=== PATIENT | male | born 1950 | race Caucasian/White ===

== ENCOUNTER 2016-12-03 14:22 | Inpatient (IN) ==
--- NOTE | 2016-12-03 14:46 | Emergency Department Note ---
Disposition Clinical Impression: New onset a-fib, Atrial fibrillation with RVR, Elevated troponin Disposition: Home, Self-Care Condition: Fair Time of Disposition: 15:37 Chest Pain HPI - General Chief Complaint: ED Chest Pain Stated Complaint: Chest Pain Time Seen by Provider: 12/03/16 14:23 Source: patient, EMS Mode of arrival: EMS Limitations: no limitations Vital Signs Reviewed: Yes Nursing Notes Reviewed: Yes - History of Present Illness HPI Narrative: Patient is a 66-year-old male with past medical history of hypertension, diabetes, high cholesterol, previous [facility] with stent placement. He cannot remember his last stress test or heart catheter. However, he has not had any testing within the past several years. He presents today as a transfer from the [facility]. He began having chest pain this morning around 4 AM. He felt like his heart was racing, felt short of breath, had left-sided chest pain that was a pressure that radiated to his left upper extremity. He also has some mild nausea. Denies any vomiting, abdominal pain, fevers, diarrhea, productive cough. He presented to the [facility] urgent care. He was found to have new onset a fib RVR. They gave him aspirin 325mg and nitroglycerin 1. He states that this did not really help with his chest discomfort and this caused him to get a headache. Currently, patient feels that his heart is racing and is short of breath but has no active chest pain while at rest. Otherwise in no acute distress. He denies ever having A. fib, has never been on any blood thinners besides presumably Plavix for stent placement. Severity scale (1-10): 6 - Related Data Allergies Allergy/AdvReac Type Severity Reaction Status Date / Time No Known Allergies Allergy Verified 12/03/16 14:51 All systems ED: reviewed and negative except as stated. Constitutional: Denies: fever Cardiovascular: Reports: chest pain, palpitations, dyspnea on exertion Respiratory: Denies: cough, dyspnea, wheezes Gastrointestinal: Reports: abdominal pain Chest Pain PMH - Past Medical History Medical history: Reports: cancer, coronary artery disease, diabetes, hypertension, thyroid disease Psychiatric history: Reports: no psych history - Social History Smoking Status: Former smoker Alcohol use: Reports: none Drug use: Reports: none Physical Exam - General Limitations: no limitations General appearance: alert - Head Head exam: atraumatic, normocephalic, normal inspection - Eye Eye exam: Present: normal appearance, PERRL, EOMI - ENT ENT exam: normal exam, normal oropharynx, mucous membranes moist - Neck Neck exam: Present: normal inspection, full ROM, trachea midline - Chest Chest inspection: Present: normal inspection, symmetric chest wall rise - Respiratory Respiratory exam: Present: normal lung sounds bilaterally - Cardiovascular Cardiovascular exam: Present: tachycardia, irregular rhythm, normal heart sounds - Abdominal Exam Abdominal exam: Present: soft, Non-Tender. Absent: tenderness, distention, guarding, rebound, rigidity - Extremities Exam Extremities exam: Present: normal inspection, full ROM. Absent: tenderness, pedal edema - Neurological Exam Neurological exam: Present: alert, oriented X3 - Psychiatric Psychiatric exam: Present: normal affect, normal mood - Skin Skin exam: Present: warm, dry, intact, normal color Course Course Narrative: Blood pressure stable and 150s over 90. Heart rate was in the 150s. EKG shows A. fib with RVR but no acute ST elevation or depression. Patient has very been given aspirin 325 mg, nitroglycerin 1. We will give the patient Cardizem 20 mg bolus and then Cardizem 10. Also perform basic blood work, troponin, chest x -ray and then admit for further care for new onset A. fib RVR. 15:34 CBC within normal limits. BMP not concerning. Troponin 0.15. CXR shows no acute cardio pulmonary process but there is a question of unusual location of patient's port in the chest. Clinically, no concern at this time. Patient started on heparin drip. Heart rate has improved. Patient will be admitted to medicine for further care. Patient has been accepted by Dr. Boogie Chest X-Ray 12/03/16 14:36 IMPRESSION: 1. No acute cardiopulmonary process identified. 2. Unusual location of the patient's of port component of a Port-A-Cath which is located more medially than typically seen. Physical exam correlation and clinical questioning is recommended to ensure there has not been migration of this port. The catheter terminates in the expected location of the distal SVC. D/ / Mike Kamara MD / Mike Kamara MD Interpreting Provider: Mike Kamara MD Vital Signs Temperature 97.9 F 12/03/16 14:34 Pulse Rate 91 12/03/16 14:34 Respiratory Rate 20 12/03/16 14:34 Blood Pressure 154/89 12/03/16 14:34 O2 Sat by Pulse Oximetry 98 12/03/16 14:34 Temperature 97.9 F 12/03/16 14:34 Pulse Rate 77 12/03/16 17:16 Respiratory Rate 18 12/03/16 17:16 Blood Pressure 145/65 12/03/16 17:16 O2 Sat by Pulse Oximetry 97 12/03/16 17:16 Oxygen Delivery Oxygen Delivery Nasal Cannula Chest Pain - MDM Narrative Medical decision making narrative: Blood pressure stable and 150s over 90. Heart rate was in the 150s. EKG shows A. fib with RVR but no acute ST elevation or depression. Patient has very been given aspirin 325 mg, nitroglycerin 1. We will give the patient Cardizem 20 mg bolus and then Cardizem 10. Also perform basic blood work, troponin, chest x -ray and then admit for further care for new onset A. fib RVR. 15:34 CBC within normal limits. BMP not concerning. Troponin 0.15. CXR shows no acute cardio pulmonary process but there is a question of unusual location of patient's port in the chest. Clinically, no concern at this time. Patient started on heparin drip. Heart rate has improved. Patient will be admitted to medicine for further care. Patient has been accepted by Dr. Boogie - Medical Records Medical records reviewed: Yes I reviewed the patient's medical records. - Lab Data Lab results reviewed: Yes I reviewed the patient's lab results. Result diagrams: 12/03/16 14:32 12/03/16 14:32 Lab Results 12/03/16 12/03/16 12/03/16 Range/Units 14:32 14:32 14:32 WBC 7.8 (4.3-11.1) K/mcL RBC 4.85 (4.19-5.50) M/mcL Hgb 15.6 (12.9-16.9) g/dL Hct 45.0 (37.5-50.1) % MCV 92.8 (83.0-100.0) fL MCH 32.2 (28.0-33.3) pg MCHC 34.7 (31.6-35.5) g/dL RDW 12.2 (11.5-14.5) % Plt Count 290 (140-400) K/mcL MPV 12.0 (9.4-12.4) fL Immature Gran % 0.3 (0-4) % Seg Neutrophils % 66.5 % Lymphocytes % 19.4 % Monocytes % 11.0 % Eosinophils % 1.8 % Basophils % 1.0 % Neutrophils # 5.2 (1.6-8.9) K/mcL Lymphocytes # 1.5 (0.6-4.6) K/mcL Monocytes # 0.9 (0.0-1.3) K/mcL Eosinophils # 0.1 (0.0-0.6) K/mcL Basophils # 0.1 (0.0-0.2) K/mcL PT 11.4 (9.4-12.1) Seconds INR 1.1 APTT 30.6 (26.0-36.0) Seconds D-Dimer 386 (0-500) ng/mLFEU Sodium 140 (136-145) mEq/L Potassium 4.0 (3.5-4.5) mEq/L Chloride 107 (98-109) mEq/L Carbon Dioxide 23 (19-29) mEq/L BUN 13 (8-26) mg/dL Creatinine 1.06 (0.72-1.25) mg/dL Est GFR ( Amer) > 60 (> 60) Est GFR (Non-Af Amer) > 60 (> 60) BUN/Creatinine Ratio 12 (6-26) Glucose 267 H (70-99) mg/dL Calculated Osmolality 299 (280-300) Calcium 9.8 (8.6-10.8) mg/dL Troponin I (0-0.03) ng/mL 12/03/16 Range/Units 14:32 WBC (4.3-11.1) K/mcL RBC (4.19-5.50) M/mcL Hgb (12.9-16.9) g/dL Hct (37.5-50.1) % MCV (83.0-100.0) fL MCH (28.0-33.3) pg MCHC (31.6-35.5) g/dL RDW (11.5-14.5) % Plt Count (140-400) K/mcL MPV (9.4-12.4) fL Immature Gran % (0-4) % Seg Neutrophils % % Lymphocytes % % Monocytes % % Eosinophils % % Basophils % % Neutrophils # (1.6-8.9) K/mcL Lymphocytes # (0.6-4.6) K/mcL Monocytes # (0.0-1.3) K/mcL Eosinophils # (0.0-0.6) K/mcL Basophils # (0.0-0.2) K/mcL PT (9.4-12.1) Seconds INR APTT (26.0-36.0) Seconds D-Dimer (0-500) ng/mLFEU Sodium (136-145) mEq/L Potassium (3.5-4.5) mEq/L Chloride (98-109) mEq/L Carbon Dioxide (19-29) mEq/L BUN (8-26) mg/dL Creatinine (0.72-1.25) mg/dL Est GFR ( Amer) (> 60) Est GFR (Non-Af Amer) (> 60) BUN/Creatinine Ratio (6-26) Glucose (70-99) mg/dL Calculated Osmolality (280-300) Calcium (8.6-10.8) mg/dL Troponin I 0.15 H* (0-0.03) ng/mL - Radiology Data Radiology results reviewed: Yes I reviewed the patient's radiology results. Chest X-Ray 12/03/16 14:36 IMPRESSION: 1. No acute cardiopulmonary process identified. 2. Unusual location of the patient's of port component of a Port-A-Cath which is located more medially than typically seen. Physical exam correlation and clinical questioning is recommended to ensure there has not been migration of this port. The catheter terminates in the expected location of the distal SVC. D/ / Mike Kamara MD / Mike Kamara MD Interpreting Provider: Mike Kamara MD - EKG Data EKG attestation: Yes I reviewed and interpreted this EKG. EKG results narrative: EKG #1 dec 03 2016 at 14:26. A. fib with RVR. Rate 144. QRS 29. QTc 352. Left axis deviation. No acute ST elevation or depression. EKG #2 12/03/2016 at 14:39. A. fib with RVR. Rate was 52. QRS 114. QTC 360. Left axis deviation. No acute ST elevation or depression. Rajinder - Rajinder Situation: Demographics, MOA Background: Presenting Complaint, Relevant PMH, Meds, & Allergies Assessment: Vital Signs, Course and respsone to treatment, Exam Concerns, Patient/Family Expectation, Pertinant Lab Results, Outstanding Labs Recommendation: Barrier(s) to disposition, Recommendation based on pending studies, treatments, or consults Rajinder Report Given to: Dr. Keagan Calvillo Repor Time: 15:37 Attestation Statement - Attestation Attestation: I, Sivakumar Regan, examined this patient and my medical decision-making was reviewed with the [employer]/PA/Advanced Practice Nurse/Resident Physician. I agree with the documented findings, disposition and treatment plan as described except to the extent set forth below. 66-year-old male presents with concerns of chest pain, shortness of breath and weakness over the past 4 days. Patient states his shortness of breath and weakness has been increasing as been increasing over the past 4 days however today at 4 AM he developed acute onset of sternal chest pain. Patient reports he felt mildly nauseated with the pain. He presented to the [facility] who gave him aspirin and sent him into the emergency department. On arrival the patient has atrial fibrillation with rapid ventricular rate. Never had atrial fibrillation in the past. Does not take anticoagulant medication. Patient has a history of coronary artery disease with 1 stent in the past. Patient given Cardizem 20 mg bolus with subsequent Cardizem drip with improvement of the patient's heart rate and pain. Patient given aspirin by the [facility]. Patient comfortable with plan for admission to hospital for continuation of care.
[2016-12-03 14:50] LABS: Basophils # 0.1 K/mcL (0.0-0.2); Eosinophils # 0.1 K/mcL (0.0-0.6); Eosinophils % 1.8 %; Hemoglobin 15.6 g/dL (12.9-16.9); Immature Granulocytes % 0.3 % (0-4); Lymphocytes # 1.5 K/mcL (0.6-4.6); Lymphocytes % 19.4 %; Mean Corpuscular HGB Conc 34.7 g/dL (31.6-35.5); Mean Corpuscular Hemoglobin 32.2 pg (28.0-33.3); Mean Corpuscular Volume 92.8 fL (83.0-100.0); Monocytes # 0.9 K/mcL (0.0-1.3); Neutrophils # 5.2 K/mcL (1.6-8.9); Platelet Count 290 K/mcL (140-400); Red Blood Count 4.85 M/mcL (4.19-5.50); Red Cell Distribution Width 12.2 % (11.5-14.5); Segmented Neutrophils % 66.5 %
[2016-12-03 14:55] LABS: BUN/Creatinine Ratio 12 (6-26); Blood Urea Nitrogen 13 mg/dL (8-26); Calcium 9.8 mg/dL (8.6-10.8); Carbon Dioxide 23 mEq/L (19-29); Chloride 107 mEq/L (98-109); Glucose 267 mg/dL (70-99); Osmolality,Calculated 299 (280-300); Sodium 140 mEq/L (136-145); eGFR For African Americans > 60 (> 60); eGFR For Non-African Americans > 60 (> 60)
[2016-12-03 15:03] LABS: INR 1.1; Prothrombin Time 11.4 Seconds (9.4-12.1)
[2016-12-03 15:05] LABS: Activated Partial Thrombo Time 30.6 Seconds (26.0-36.0)
[2016-12-03] MEDS ORDERED: *HR* Heparin 5,000 UNIT/ML VIAL IVP ONE (15:26)
[2016-12-03] MEDS ORDERED: *HR* Heparin 5,000 UNIT/ML VIAL IVP PRN ×2 (15:26)
[2016-12-03] MEDS ORDERED: Acetaminophen 325 MG TABLET PO PRN (16:19)
[2016-12-03] MEDS: Heparin 25,000 UNIT/500 ML D5W 25,000 UNIT/500 ML MLS IVC SCH (16:19)
[2016-12-03] MEDS ORDERED: Naloxone 0.4 MG/ML INJ IVP PRN (16:19)
[2016-12-03] MEDS ORDERED: *HR* Morphine 2 MG/ML SYRINGE IVP PRN (16:19)
--- NOTE | 2016-12-03 16:29 | Internal Med History&Physical ---
Date of Encounter: 12/03/16 Time of Encounter: 16:26 Assessment and Plan (1) Atrial fibrillation with RVR Current visit: Yes Status: Acute Patient presented with chest pain, palpitations and shortness of breath. Found to be in Afib with RVR, HR in the 150s. He was given a cardizem bolus and started on a cardizem drip with HR improving to the 90s. Continue cardizem drip. Consult to cardiology. (2) NSTEMI (non-ST elevated myocardial infarction) Current visit: Yes Status: Acute Patient with left chest pain starting at 4 am this morning. He has a history of [place] in 1988, other risk factors include HTN, DM, history of smoking, and obesity. EKG shows afib with RVR, but no ST elevations. Troponin 0.15. Continuous patient monitor heparin drip serial troponins consult to cardiology ordered. (3) Type 2 diabetes mellitus Current visit: Yes Status: Acute Check Hgb A1c check blood sugars ACHS sliding scale correction dose ACHS hypoglycemic protocol. Qualifiers: Diabetes mellitus complication status: with neurologic complications Diabetes mellitus complication detail: with polyneuropathy Diabetes mellitus prison insulin use: with prison use Qualified Code(s): E11.42 - Type 2 diabetes mellitus with diabetic polyneuropathy; Z79.4 - half-way (current) use of insulin (4) DVT prophylaxis Current visit: Yes Status: Acute anti-embolic stockings On heparin drip for NSTEMI, additional pharmacologic prophylaxis is not warranted. Internal Medicine - H&P: HPI Chief complaint: chest pain Admitted From: Emergency Dept Plans for Post Hospital Care: Home History of present illness: Mr. Holloway is a 66 year old male with hypertension, hyperlipidemia, type 2 diabetes, coronary artery disease status post stent placement, history of colon cancer status post partial colectomy, was sent to the emergency room today from the [place] [facility] with chest pain and atrial fibrillation with RVR. Patient reports that this morning he woke up and was having chest pain in his left chest left shoulder and left arm, he also experienced nausea, lightheadedness, palpitations and shortness of breath. Chest pain and shortness of breath were worse with exertion. Chest pain has been somewhat relieved by aspirin and nitroglycerin in the emergency department by patient reports is still present. He denies any headache, fever, chills, sweats, abdominal pain, diarrhea. Evaluation in the emergency department included an EKG which showed atrial fibrillation with RVR heart rate 150s, but no ST elevations or depressions. Troponin was elevated to 0.15. Chest x-ray showed no acute cardiopulmonary disease. On exam, patient is alert and oriented, in no acute distress. Heart has irregular tachycardic rhythm, lungs are clear bilaterally, abdomen is obese , nontender, he has trace bilateral lower extremity edema. Past Med Surg Social Fam HX - Past Medical History Medical history: cancer (colon cancer s/p partial colectomy and chemo, 4-5 years ago.), coronary artery disease, diabetes, hypertension, thyroid disease Psychiatric history: no psych history - Past Surgical History Surgical History: angioplasty/stent, colectomy - Social History Smoking Status: Former smoker (26 pack year history) Smokeless Tobacco Status: No Alcohol use: none Drug use: none - Family History Father Living Status: Age at : 82 Hx Family Cardiac Disorders: Yes Brother Living Status: Cause of : CVA Internal Medicine - H&P: Meds Aspirin Enteric Coated [Aspirin EC] 81 mg PO DAILY 12/03/16 [History] Atorvastatin Calcium [Lipitor] 20 mg PO HS 12/03/16 [History] Benzonatate [Tessalon] 100 mg PO TID PRN 12/03/16 [History] Carvedilol [Coreg] 6.25 mg PO BIDWM 12/03/16 [History] Cetirizine HCl [Zyrtec] 10 mg PO DAILY 12/03/16 [History] Cholecalciferol (D-3) [Vitamin D] 1,000 unit PO DAILY 12/03/16 [History] Fluticasone Propionate Nasal [Flonase] 100 mcg NS DAILY 12/03/16 [History] Insulin ASPART [Novolog Flexpen] 2 - 10 unit SQ TIDAC 12/03/16 [History] Insulin Glargine [Lantus] 43 unit SQ HS 12/03/16 [History] Levothyroxine [Synthroid] 175 mcg PO 0630 12/03/16 [History] Lisinopril [Zestril] 10 mg PO DAILY 12/03/16 [History] Metformin HCl [Metformin HCl ER] 1,000 mg PO BID 12/03/16 [History] Tamsulosin [Flomax] 0.4 mg PO BID 12/03/16 [History] Allergies No Known Allergies Allergy (Verified 12/03/16 14:51) All Systems PM: A 10-system review of systems was performed and is negative for pertinent findings except as documented above in the HPI. - Constitutional Constitutional: no chills, no fever(s), no night sweats - EENT Eyes: no change in vision, no discharge, no pain, no photophobia Ears: no ear discharge, no ear pain, no tinnitus Nose, mouth and throat: no dysphagia, no nasal discharge, no neck pain, no sore throat - Cardiovascular Cardiovascular ROS IM: chest pain, dyspnea, dyspnea on exertion, lightheadedness , palpitations, no diaphoresis, no syncope - Respiratory Respiratory: dyspnea, no cough, no wheezing, no excessive phlegm production - Gastrointestinal Gastrointestinal: nausea, no abdominal pain, no diarrhea, no hematemesis, no hematochezia, no melena, no vomiting - Musculoskeletal Musculoskeletal ROS IM: no numbness, no tingling - Integumentary Integumentary IM: no rash, no unusual bruising - Neurological Neurological ROS: no confusion, no convulsions, no focal weakness, no numbness, no tingling, no tremor(s) - Hematologic/Lymphatic Hematologic/Lymphatic: no easy bruising - Constitutional Vitals: Temp Pulse Resp BP Pulse Ox 97.9 F 126 22 134/71 97 12/03/16 14:34 12/03/16 15:38 12/03/16 15:45 12/03/16 15:45 12/03/16 15:38 General appearance: Present: A&O X 3, pleasant, no acute distress - Head Head exam: Present: atraumatic, normocephalic - Eye Eye exam: Present: PERRL, conjuntiva pink, sclera anicteric Pupils: Present: PERRL - Neck Neck exam general surgery: Present: supple, trachea midline. Absent: lymphadenopathy - Respiratory Respiratory exam: Present: CTAB. Absent: accessory muscle use, rales, rhonchi, wheezes - Cardiovascular Cardiovascular exam: Present: irregular rhythm, +S1, +S2, tachycardia. Absent: diastolic murmur, gallop, rubs, systolic murmur - GI/Abdominal GI/Abdominal exam: Present: normal bowel sounds, soft, no peritoneal signs. Absent: distended, tenderness - Extremities Exam Extremities exam: Present: pedal edema (trace BLE ), warm, radial pulses palpable and symetrical. Absent: calf tenderness, cyanotic - Neurological Exam Neurological exam: Present: CN II-XII intact, oriented X3, no focal deficits. Absent: facial droop, speech deficit - Skin Skin exam: Present: dry, intact Internal Med - H&P Results - Labs CBC & Chem 7: 12/03/16 14:32 12/03/16 14:32 Labs: All Lab Results (24 Hours) 12/03/16 12/03/16 12/03/16 Range/Units 14:32 14:32 14:32 WBC 7.8 (4.3-11.1) K/mcL RBC 4.85 (4.19-5.50) M/mcL Hgb 15.6 (12.9-16.9) g/dL Hct 45.0 (37.5-50.1) % MCV 92.8 (83.0-100.0) fL MCH 32.2 (28.0-33.3) pg MCHC 34.7 (31.6-35.5) g/dL RDW 12.2 (11.5-14.5) % Plt Count 290 (140-400) K/mcL MPV 12.0 (9.4-12.4) fL Immature Gran % 0.3 (0-4) % Seg Neutrophils % 66.5 % Lymphocytes % 19.4 % Monocytes % 11.0 % Eosinophils % 1.8 % Basophils % 1.0 % Neutrophils # 5.2 (1.6-8.9) K/mcL Lymphocytes # 1.5 (0.6-4.6) K/mcL Monocytes # 0.9 (0.0-1.3) K/mcL Eosinophils # 0.1 (0.0-0.6) K/mcL Basophils # 0.1 (0.0-0.2) K/mcL PT 11.4 (9.4-12.1) Seconds INR 1.1 APTT 30.6 (26.0-36.0) Seconds Sodium 140 (136-145) mEq/L Potassium 4.0 (3.5-4.5) mEq/L Chloride 107 (98-109) mEq/L Carbon Dioxide 23 (19-29) mEq/L BUN 13 (8-26) mg/dL Creatinine 1.06 (0.72-1.25) mg/dL Est GFR ( Amer) > 60 (> 60) Est GFR (Non-Af Amer) > 60 (> 60) BUN/Creatinine Ratio 12 (6-26) Glucose 267 H (70-99) mg/dL Calculated Osmolality 299 (280-300) Calcium 9.8 (8.6-10.8) mg/dL Troponin I (0-0.03) ng/mL 12/03/16 Range/Units 14:32 WBC (4.3-11.1) K/mcL RBC (4.19-5.50) M/mcL Hgb (12.9-16.9) g/dL Hct (37.5-50.1) % MCV (83.0-100.0) fL MCH (28.0-33.3) pg MCHC (31.6-35.5) g/dL RDW (11.5-14.5) % Plt Count (140-400) K/mcL MPV (9.4-12.4) fL Immature Gran % (0-4) % Seg Neutrophils % % Lymphocytes % % Monocytes % % Eosinophils % % Basophils % % Neutrophils # (1.6-8.9) K/mcL Lymphocytes # (0.6-4.6) K/mcL Monocytes # (0.0-1.3) K/mcL Eosinophils # (0.0-0.6) K/mcL Basophils # (0.0-0.2) K/mcL PT (9.4-12.1) Seconds INR APTT (26.0-36.0) Seconds Sodium (136-145) mEq/L Potassium (3.5-4.5) mEq/L Chloride (98-109) mEq/L Carbon Dioxide (19-29) mEq/L BUN (8-26) mg/dL Creatinine (0.72-1.25) mg/dL Est GFR ( Amer) (> 60) Est GFR (Non-Af Amer) (> 60) BUN/Creatinine Ratio (6-26) Glucose (70-99) mg/dL Calculated Osmolality (280-300) Calcium (8.6-10.8) mg/dL Troponin I 0.15 H* (0-0.03) ng/mL - Diagnostic Studies Chest x-ray Additional comments: Chest X-Ray 12/03/16 14:36 IMPRESSION: 1. No acute cardiopulmonary process identified. 2. Unusual location of the patient's of port component of a Port-A-Cath which is located more medially than typically seen. Physical exam correlation and clinical questioning is recommended to ensure there has not been migration of this port. The catheter terminates in the expected location of the distal SVC. D/ / Mike Kamara MD / Mike Kamara MD Interpreting Provider: Mike Kamara MD
[2016-12-03] MEDS ORDERED: D5% in Water 1,000 ML IVC PRN (16:34)
[2016-12-03] MEDS ORDERED: *HR* Dextrose 50 % in Water (Syg) 50 ML SYRINGE IVP PRN (16:34)
[2016-12-03] MEDS ORDERED: Dextrose Gel 15 GM PO PRN ×2 (16:34)
[2016-12-03] MEDS: Insulin LISPRO 300 UNITS/3 ML VIAL SQ SCH ×2 (17:27→21:15)
[2016-12-03] MEDS: Furosemide 40 MG/4 ML VIAL IVP SCH (17:27)
[2016-12-03] MEDS ORDERED: *HR* HYDROcodone/Acet 5/325 mg TABLET PO PRN (17:37)
--- NOTE | 2016-12-03 17:41 | Event Note ---
Date of Encounter: 12/03/16 Time of Encounter: 17:36 Patient seen and examined with nurse practitioner. Patient presented to the emergency room with a man complaining of chest pain and shortness of breath. He was found to be in a fib/flutter with RVR. He is currently on Cardizem drip heparin drip also started. His Kartik flask score is at least 3. He has been having left arm pain. will trend serial troponin. His initial troponin was 0.15. Suspect demanded ischemia but coronary disease is not completely ruled out. He has a history of prior stents. Mild diastolic congestive heart failure will give IV Lasix. Patient is not resuscitate but he is okay with intubation for respiratory purposes if his heart is still working. Cardiology consultation
[2016-12-03 17:46] LABS: Hemoglobin A1C 8.9 %
[2016-12-03] MEDS: Aspirin 81 MG TAB.CHEW PO SCH (18:16)
[2016-12-03] MEDS ORDERED: Insulin DETEMIR 100 UNIT/ML X5UNITS SQ SCH (22:45)
[2016-12-03] MEDS: Insulin DETEMIR 100 UNIT/ML X5UNITS SQ SCH (23:33)
[2016-12-04] MEDS: Heparin 25,000 UNIT/500 ML D5W 25,000 UNIT/500 ML MLS IVC SCH (04:39)
[2016-12-04 05:06] LABS: Basophils # 0.1 K/mcL (0.0-0.2); Eosinophils # 0.3 K/mcL (0.0-0.6); Hematocrit 39.6 % (37.5-50.1); Immature Granulocytes % 0.4 % (0-4); Lymphocytes % 25.4 %; Mean Corpuscular HGB Conc 35.1 g/dL (31.6-35.5); Mean Corpuscular Hemoglobin 32.6 pg (28.0-33.3); Mean Platelet Volume 12.5 fL (9.4-12.4); Monocytes # 0.8 K/mcL (0.0-1.3); Monocytes % 10.5 %; Neutrophils # 4.7 K/mcL (1.6-8.9); Platelet Count 251 K/mcL (140-400); Red Blood Count 4.26 M/mcL (4.19-5.50); Red Cell Distribution Width 12.5 % (11.5-14.5); Segmented Neutrophils % 58.7 %
[2016-12-04 05:07] LABS: Hemoglobin 13.9 g/dL (12.9-16.9)
[2016-12-04 05:14] LABS: INR 1.1; Prothrombin Time 12.4 Seconds (9.4-12.1)
[2016-12-04 05:16] LABS: Activated Partial Thrombo Time 66.8 Seconds (26.0-36.0)
[2016-12-04 05:20] LABS: BUN/Creatinine Ratio 14 (6-26); Blood Urea Nitrogen 13 mg/dL (8-26); Calcium 9.1 mg/dL (8.6-10.8); Carbon Dioxide 22 mEq/L (19-29); Chloride 106 mEq/L (98-109); Glucose 172 mg/dL (70-99); Osmolality,Calculated 294 (280-300); Potassium 3.4 mEq/L (3.5-4.5); Sodium 140 mEq/L (136-145); eGFR For African Americans > 60 (> 60); eGFR For Non-African Americans > 60 (> 60)
[2016-12-04] MEDS ORDERED: Potassium Chloride 20 MEQ, Lidocaine 1% 2 ML in D5% in Water 250 ML IVPB ONE (08:08)
--- NOTE | 2016-12-04 08:27 | Cardiology Consult Note ---
Date of Encounter: 12/04/16 Time of Encounter: 08:27 Assessment and Plan (1) New onset a-fib Current Visit: Yes Status: Acute Back in NSR upon exam, repeat EKG. - DC cardizem drip, Start PO cardizem 30mg Q6h- titrate up as needed. - continue cardiac surgeon - unsure of A fib trigger, no recent changes. Pt just describes worsening fatigue over last few weeks. Check TSH. - heart catherization today (2) NSTEMI (non-ST elevated myocardial infarction) Current Visit: Yes Status: Acute Elevated troponin 0.14 (peaked at 0.19), likely 2/2 demand ischemia. However, pt did have symptoms of chest pain since 4 am that was exertional. Pt has also had years of exertional chest pressure and dyspnea. No recent cardiac testing. - Echocardiogram pending; hx of diastolic dysfunction. - currently on heparin gtt - continue Aspirin, Lipitor, Coreg, Lisinopril, synthroid. - Since pt has had years of exertional chest pressure and dyspnea that is now worse with elevated troponin and new onset a fib with RVR, will proceed with left heart catheterization. Discussed with patient who is in agreement with this plan. - Pt no longer dyspneic, no edema, no lung crackling/wheezing- can DC lasix. Discussion w patient/family: The assessment and plan as outlined above was discussed with the patient and/or family members who expressed understanding and agreement. All questions were answered. Thank you for involving us in the care of your patient. Please call with any questions. History of Present Illness Consult date: 12/03/16 Requesting physician: Magalie Cordoba Consult reason: new onset A fib with RVR, Elevated troponin Chief complaint: chest pain, sob with exertion, palpitations History of present illness: Mr. Holloway is a 66 year old male with a past medical history of hypertension, hyperlipidemia, type 2 diabetes, [place]/CAD status post stent placement in 1988, colon cancer status post partial colectomy, hypothyroidism, former smoker. Patient states he woke up around 4 AM yesterday with sudden onset of chest pain , palpitations, nausea, lightheadedness, shortness of breath with exertion. States he ended up going back to sleep and woke up again around 11 AM and went to see his physician at the [facility] for a knee injection. They took his blood pressure and found it to be elevated and transferred him over to [facility] ED. Patient was found to be in atrial fibrillation with RVR. He was given a Cardizem 20 mg bolus and then placed on a Cardizem drip. He was found to have an elevated troponin of 0.14 and was started on a heparin drip. Patient states he has had issues with chest pressure and difficulty breathing with exertion ever since he had his colectomy approximately 5 years ago. States his last stress test was done back in 2002 and had been unremarkable at that time. Patient states he has been compliant with his medications. Upon my exam, he does not have any chest pain or difficulty breathing. States he feels like his normal self aside from feeling out of it like he has difficulty finding his words. Past Med Surg Social Fam HX - Past Medical History Medical history: cancer (colon cancer s/p partial colectomy and chemo, 4-5 years ago.), coronary artery disease, diabetes, hypertension, thyroid disease Psychiatric history: no psych history - Past Surgical History Surgical History: angioplasty/stent, colectomy - Social History Smoking Status: Former smoker (26 pack year history) Smokeless Tobacco Status: No Alcohol use: none Drug use: none - Family History Father Living Status: Age at : 82 Hx Family Cardiac Disorders: Yes Brother Living Status: Cause of : CVA Medications and Allergies Aspirin Enteric Coated [Aspirin EC] 81 mg PO DAILY 12/03/16 [History] Atorvastatin Calcium [Lipitor] 20 mg PO HS 12/03/16 [History] Benzonatate [Tessalon] 100 mg PO TID PRN 12/03/16 [History] Carvedilol [Coreg] 6.25 mg PO BIDWM 12/03/16 [History] Cetirizine HCl [Zyrtec] 10 mg PO DAILY 12/03/16 [History] Cholecalciferol (D-3) [Vitamin D] 1,000 unit PO DAILY 12/03/16 [History] Fluticasone Propionate Nasal [Flonase] 100 mcg NS DAILY 12/03/16 [History] Insulin ASPART [Novolog Flexpen] 2 - 10 unit SQ TIDAC 12/03/16 [History] Insulin Glargine [Lantus] 43 unit SQ HS 12/03/16 [History] Levothyroxine [Synthroid] 175 mcg PO 0630 12/03/16 [History] Lisinopril [Zestril] 10 mg PO DAILY 12/03/16 [History] Metformin HCl [Metformin HCl ER] 1,000 mg PO BID 12/03/16 [History] Tamsulosin [Flomax] 0.4 mg PO BID 12/03/16 [History] Allergies No Known Allergies Allergy (Verified 12/03/16 14:51) All Systems Review: A 10-system review of systems was performed and is negative for pertinent findings except as documented above in the HPI. - Constitutional Constitutional: fatigue - EENT Eyes: no loss of vision, no pain Nose, mouth and throat: no sore throat, no throat swelling - Cardiovascular Cardiovascular: chest pain with exertion, dyspnea on exertion, irregular heart rhythm, lightheadedness, palpitations, rapid heart rate - Respiratory Respiratory: dyspnea, no cough, no wheezing - Gastrointestinal Gastrointestinal: abdominal pain (chronic), nausea - Genitourinary Genitourinary: no dysuria - Musculoskeletal Musculoskeletal: no abnormal gait - Integumentary Integumentary: no erythema, no rash - Neurological Neurological: dizziness, numbness (fingers and toes 2/2 neuropathy), no abnormal speech, no focal weakness Physical Examination Vital Signs, Last 4 Hours Temp Pulse Resp BP Pulse Ox 12/04/16 05:20 97.8 F 74 20 134/66 97 12/04/16 04:41 21 98 General: Conversant, No Apparent Distress HEENT: Atraumatic, Mucus Membranes Moist Neck: No JVD Cardiac: Reg Rate and Rhythm, Normal S1 and S2 Lungs: Normal Breath Sounds, No Wheeze, Rales, Rhonchi Neuro: Alert and responsive, No focal deficits noted Abdomen: Soft, Non-Tender Skin: No rashes noted on visualized skin Musculoskeletal: No Chest Wall Tenderness Extremities: No Edema, Normal Pulses Results 12/04/16 04:27 12/04/16 04:27 Lab Results 12/03/16 12/03/16 12/04/16 22:20 23:36 04:27 WBC Hgb Hct Plt Count INR APTT 72.0 H D Sodium Potassium Chloride Carbon Dioxide BUN Creatinine Glucose Calcium Troponin I 0.19 H* 0.14 H* 12/04/16 12/04/16 12/04/16 04:27 04:27 04:27 WBC 8.0 Hgb 13.9 D Hct 39.6 Plt Count 251 INR 1.1 APTT 66.8 H Sodium 140 Potassium 3.4 L Chloride 106 Carbon Dioxide 22 BUN 13 Creatinine 0.90 Glucose 172 H Calcium 9.1 Troponin I - Imaging and Cardiology Chest Xray: report reviewed - EKG Interpretation EKG results cardiology: personally reviewed Consult Discharge Plan - Plan [facility]errals: [facility] [Primary Care Provider] -
[2016-12-04] MEDS: Insulin LISPRO 300 UNITS/3 ML VIAL SQ SCH ×4 (08:32→21:54)
[2016-12-04] MEDS: Furosemide 40 MG/4 ML VIAL IVP SCH (09:40)
[2016-12-04] MEDS: Aspirin 81 MG TAB.CHEW PO SCH (09:40)
--- NOTE | 2016-12-04 10:45 | Internal Med Progress Note ---
Date of Encounter: 12/04/16 Time of Encounter: 10:43 - Assessment and plan (1) Atrial fibrillation with RVR Current Visit: Yes Status: Acute Assessment and plan: Patient is currently in normal sinus rhythm. Card[facility]em drip discontinued. [facility] With regards to anticoagulation I have discussed this with the patient is chadVasc score is at least 2 because of diabetes and age being 66. He has occasional falls. To follow so far this year and 4 falls last year mostly because of imbalance because of knee arthritis. He denies any head trauma during these falls. Physical therapy will see the patient. Appreciate cardiology inputs. (2) NSTEMI (non-ST elevated myocardial infarction) Current Visit: Yes Status: Acute Assessment and plan: Likely related to demand ischemia. However occlusive coronary artery disease is not excluded. He denies any chest pain currently. However he had left arm pain yesterday. He has history of prior PCI. (3) Type 2 diabetes mellitus Current Visit: Yes Status: Acute Assessment and plan: Sliding scale insulin. 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 Patient is back to normal sinus rhythm. He denies any chest pain during my interview. I have entertained anticoagulation with the patient. He denies prior history of G.I. bleed recently. He had colon cancer that was treated for years ago. However patient mentioned that he falls. He had to falls this year and 4 falls last year because of gate unsteadiness and knee arthritis. - Constitutional Vitals: Temp Pulse Resp BP Pulse Ox 97.9 F 63 20 129/64 97 12/04/16 08:28 12/04/16 08:28 12/04/16 08:28 12/04/16 08:28 12/04/16 08:28 General appearance: Present: A&O X 3, pleasant, no acute distress Exam: Gen.: patient is alert oriented times 3 not in distress. Cardiac: normal S1 S2 no additional sounds or murmurs chest: fair air entry. no active wheezing. No crackles or bronchial breathing. abdomen: soft nontender nondistended normal bowel sounds neuro: no focal deficit Internal Medicine: Result - Labs CBC & Chem 7: 12/04/16 04:27 12/04/16 04:27 Labs: Short CBC 12/04/16 Range/Units 04:27 WBC 8.0 (4.3-11.1) K/mcL Hgb 13.9 D (12.9-16.9) g/dL Hct 39.6 (37.5-50.1) % Plt Count 251 (140-400) K/mcL Neutrophils # 4.7 (1.6-8.9) K/mcL BMP 12/04/16 04:27 Sodium 140 Potassium 3.4 L Chloride 106 Carbon Dioxide 22 BUN 13 Creatinine 0.90 Glucose 172 H Calcium 9.1 Cardiac Enzymes 12/03/16 12/04/16 Range/Units 23:36 04:27 Troponin I 0.19 H* 0.14 H* (0-0.03) ng/mL - ABG Interpretation ABG results: PT/INR, D-dimer PT 12.4 Seconds (9.4-12.1) H 12/04/16 04:27 D-Dimer 386 ng/mLFEU (0-500) 12/03/16 14:32 Consult Discharge Plan - Plan Referrals: [facility] [Primary Care Provider] -
[2016-12-04] MEDS ORDERED: Perflutren Lipid Microsphere 1.3 ML in 0.9 % Sodium Chloride 8.7 ML IVP ONE (11:41)
[2016-12-04] MEDS ORDERED: 0.9 % Sodium Chloride 1,000 ML ONE ×2 (12:17→12:53)
[2016-12-04] MEDS ORDERED: Heparin 1,000 UNITS/500 mL NS 500 ML ONE (12:17)
[2016-12-04] MEDS ORDERED: *HR* Heparin 10,000 UNIT/10 ML VIAL ONE (12:17)
--- NOTE | 2016-12-04 12:33 | Electrocardiograph Report ---
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
[2016-12-04] MEDS ORDERED: *HR* Midazolam HCl 5 MG/5 ML VIAL IVP ONE (12:51)
[2016-12-04] MEDS ORDERED: *HR* FentaNYL (PF) 250 MCG/5 ML VIAL ONE (12:51)
[2016-12-04 14:00] LABS: Thyroid Stimulating Hormone 0.501 mcIU/mL (0.350-4.840)
--- NOTE | 2016-12-04 14:10 | Invasive Diagnostic Lab Proc ---
Name: Fidel Holloway Date of Study: 12/04/2016 Date: 1950 Ht: 72.0in Medical Record#: [id number] Age: 66 Wt: 367.73lb Gender: Male BSA: 2.76 Order #: [id number] BMI: 49.81 Physicians Procedure Physician: Denisse Adhikari MD, [facility] Referring MD: Referring MD: Staff Name Position Time In Mica Chatman RN Monitor 01:00 PM Bora Hamilton RN Manager Intermediate 01:00 PM [facility], Magalie RT (R) Scrub 01:00 PM Indications Indication Non-Stemi Abnormal Test - Stress Procedures Performed Procedure L HRT ARTERY/VENTRICLE ANGIO Pre-Procedure Checklist Informed consent is complete signed and on chart. H\\T\\P is on chart. ID band is on and ID verified with patient. Patient NPO for procedure The procedure was described for the patient and questions were answered. Blood Pressure: 154/92 ECG is on chart. Rhythm: NSR Plan of Care Patient will tolerate the procedure without complications. Adequate level of comfort will be maintained. Hemodynamics will remain stable Patient will recover from procedure without complications. Respiratory function will be maintained. Cardiac rhythm will remain stable. Patient temperature will be maintained. Patient and/or family have verbalized understanding of the procedure. Patient Education Chief Complaint/Reason for Test: Cardiac Cath Developmental Category: Geriatric (65+ years) Developmentally Appropriate for Age: Yes Learning Barriers: None Education Needs: Procedure Education Method: Verbal Information Taught: Cardiac Cath Educational Evaluation: Able to repeat information Intravenous Access Time IV Size Location DC'd Fluid/Drip Rate Units RN 12:34 PM 18g 1 07/22" Patent On Arrival Lt Antecubital 0.9NaCl 25 ml/hr Bora Hamilton RN 12:34 PM 18g 1 14" Patent On Arrival Rt Antecubital Allergies No Known Allergies Vital Signs Time BP (mmHg) HR (bpm) O2 Sat. RR (bpm) LOC 01:03 PM 154 / 92 66 95 % 12 5 = Fully awake and oriented or at pre-proc level 01:06 PM / % 5 = Fully awake and oriented or at pre-proc level 01:06 PM / % 4 = Oriented but drowsy 01:21 PM / % 4 = Oriented but drowsy 12:57 PM 154 / 92 66 98 % 12 01:03 PM 130 / 57 72 92 % 7 01:08 PM 129 / 52 72 98 % 8 01:12 PM 140 / 74 66 95 % 18 01:17 PM 143 / 53 72 96 % 12 01:22 PM 152 / 68 72 96 % 9 01:27 PM 129 / 52 134 97 % 9 01:32 PM 135 / 58 67 96 % 7 01:37 PM 140 / 53 % 01:37 PM / % 5 = Fully awake and oriented or at pre-proc level Procedural Medications Time Medication Dose Units Method Given By 01:05 PM Oxygen 2 L/min nasal cannula Bora Hamilton RN 01:05 PM Versed 2 mg Intravenous Bora Hamilton RN 01:06 PM Fentanyl 50 mcg Intravenous Bora Hamilton RN 01:09 PM Lidocaine 2% 18 ml Subcutaneous Denisse Adhikari MD, [facility] ASA Classification: CLASS II- Mild systemic disease (i.e. well-controlled diabetes, hypertension, asthma, cigarette smoking) Essence Score Preprocedure Postprocedure Activity 2- Moves 4 extremities sustained head lift Activity 2- Moves 4 extremities sustained head lift Circulation 2- SBP +/= 20 points of pre-anesthetic level Circulation 2- SBP +/= 20 points of pre-anesthetic level Consciousness 2- Awake and alert oriented x 3 Consciousness 2- Awake and alert oriented x 3 O2 Saturation 2- Able to maintain O2 satruation of 92% on room air O2 Saturation 2- Able to maintain O2 satruation of 92% on room air Respiratory 2- Able to deep breathe and cough well Respiratory 2- Able to deep breathe and cough well Total Score 10 Total Score 10 Contrast Agent: Isovue Diagnostic Contrast: 122 ml Total Contrast: 122 ml Fluoro Dose: 1299 mGy Procedure Log Time Note Enter By 12:31 PM CathStat 12:56 PM Vitals capture started with the following parameters, Patient=Adult, Interval=5 min, Initial Fnoqgcep=165 mmHg, Deflation Rate=5 mmHg, Cuff placed on Right Arm 12:57 PM HR=66 bpm, HRHO=961/92 mmhg, SpO2=98.0 %, Resp=12 B/min, Comment=NSR 01:00 PM Pt arrived to medical lab assistant 2 at 12:59 twilson 01:00 PM Mica Chatman RN Position: Monitor Time in: 13:00 twilson 01:00 PM Bora Hamilton RN Position: Manager Intermediate Time in: 13:00 twilson 01:00 PM Magalie Almonte RT (R) Position: Scrub Time in: : tw: PM Patient charges- Angio tray pack, Navilyst 3mm J, Pulse Oximetry and ACIST tubing and transducer twilson : PM Case Delayed No ilson PM Hair removed from procedure site in procedure lab using clippers. Bilateral groin prepped with Chloraprep by Mica Chatman RN, safety strap applied then patient was draped. Skin intact. : PM Physician arrived : PM ASA Class CLASS II- Mild systemic disease (i.e. well-controlled diabetes, hypertension, asthma, cigarette smoking) ilson : PM Meet and greet completed PM Sign in performed according to hospital policy. : PM Procedure start : twilson : PM HR=72 bpm, LSAV=798/57 mmhg, SpO2=92.0 %, Resp=7 B/min, Comment=NSR : PM Recorded ECG: HR=79 Condition=Condition 1 : PM Time: 13:05 Oxygen on at 2 L/min per nasal cannula by Bora Hamilton RN ilson PM Time: 13:05 Versed 2 mg Intravenous Given by Bora Hamilton RN ilson PM Time: 13:06 Fentanyl 50 mcg Intravenous Given by Bora Hamilton RN ilson PM Time: 13:06 Patient comfortable and pain free: Yes PM Time: 13:06LOC: 5 = Fully awake and oriented or at pre-proc level twilson PM Clinical Presentation: Unstable angina twilson : PM Time out performed according to hospital policy twilson : PM HR=72 bpm, JJVM=376/52 mmhg, SpO2=98.0 %, Resp=8 B/min, Comment=NSR : PM Time: 13: 18 ml Lidocaine 2% to right groin Subcutaneous Given by Denisse Adhikari MD, [facility] twilson : PM Access obtained by percutaneous puncture. 5Fr 10cm Terumo [place] sheath placed in right Femoral artery. [id number] twilson : PM 5Fr FL 4 catheter inserted over the wire [facility] twilson 01:11 PM LCA angiography performed in multiple views. twilson 01:11 PM Recorded Pressure: Ao, HR=73, Condition=Condition 1 (Aorta) Ao 105/66/83 01:12 PM HR=66 bpm, WPYZ=855/74 mmhg, SpO2=95.0 %, Resp=18 B/min, Comment=NSR 01:16 PM Recorded Pressure: Ao, HR=72, Condition=Condition 1 (Aorta) Ao 116/66/89 01:17 PM HR=72 bpm, YPYY=793/53 mmhg, SpO2=96.0 %, Resp=12 B/min, Comment=NSR 01:18 PM Catheter removed twilson 01:18 PM 5Fr FR 4 catheter inserted over the wire DN twilson :19 PM RCA angiography performed in multiple views. twilson :19 PM 5Fr Pigtail catheter inserted over the wire [facility] twilson 01:20 PM Catheter selectively placed in left ventricle twilson 01:20 PM Pressure channel 1 zeroed. 01:20 PM Recorded Pressure: LV, HR=19, Condition=Condition 1 (Left Ventricle) LV 112/1/1 01:20 PM Bolus angiogram of left Ventricle complete: 8 ml/sec for a total of 24 mls twilson :21 PM Recorded Pressure: LV, HR=74, Condition=Condition 1 (Left Ventricle) LV 100/10/3 01:21 PM Recorded Pressure: LV, Ao, HR=86, Condition=Condition 1 (Left Ventricle) LV 108/24/14, (Aorta) Ao 109/54/77 01:21 PM Time: 13:06LOC: 4 = Oriented but drowsy twilson :21 PM Time: 13:06 Patient comfortable and pain free: Yes twilson 01:21 PM Catheter removed twilson 01:22 PM HR=72 bpm, HHLU=425/68 mmhg, SpO2=96.0 %, Resp=9 B/min, Comment=NSR 01:27 PM [place]=865 bpm, GMFV=723/52 mmhg, SpO2=97.0 %, Resp=9 B/min, Comment=NSR 01:28 PM JL4 reinserted twilson 01:28 PM Recorded Pressure: Ao, HR=98, Condition=Condition 1 (Aorta) Ao 97/45/66 01:29 PM LCA angiography performed in multiple views. twilson 01:30 PM Catheter removed twilson 01:31 PM Bolus angiogram of right Femoral complete: 4 ml/sec for a total of 7 mls twilson 01:32 PM HR=67 bpm, KAEU=228/58 mmhg, SpO2=96.0 %, Resp=7 B/min, Comment=NSR 01:34 PM Catheter removed twilson 01:34 PM Procedure completed at 13:34 twilson 01:35 PM Sign out completed: Radiation Dose 1299.03 mGy Fluoro Time: 2.3 Isovue 370 - 200ml contrast 122 ml given by Denisse Adhikari MD, [facility]. Complications: NoneCardiac Rehab Consult needed: YesConfirmed administered medications: Yes twilson 01:35 PM Isovue 370 - 200ml,1 Bottle(s) used. twilson 01:35 PM Arterial sheath pulled, Mynx closure device used and was Successful [id number] S/N. twilson 01:35 PM Post ECG NSR twilson 01:35 PM Post Blood Pressure 135/58 twilson 01:35 PM 13:35 Post Pulses Bilateral DP \\T\\ PT 1+ twilson 01:35 PM Information taught Cardiac Cath and Mynx twilson 01:36 PM Education needs Procedure, Plan of Care, and Safe \\T\\ Effective Use of Medications twilson 01:36 PM Learning barriers :None twilson 01:36 PM Education Methods Verbal twilson 01:36 PM Education evaluation Able to repeat information twilson 01:36 PM Site status No bleeding/hematoma - Rt Groin as reported by Sites, Magalie RT (R) at 13:36 twilson 01:36 PM Opsite applied twilson 01:37 PM Time: 13:21 Patient comfortable and pain free: Yes twilson 01:37 PM Time: 13:21LOC: 4 = Oriented but drowsy twilson 01:37 PM NLZU=045/53 mmhg, Comment=NSR 01:42 PM Vitals capture stopped. 01:44 PM Coronary Dominance: right twilson 01:45 PM Lesion found in Proximal RCA. Pre Stenosis: 90 twilson 01:45 PM Lesion found in Mid RCA. Pre Stenosis: 100 twilson 01:45 PM Lesion found in LMCA. Pre Stenosis: 30 twilson 01:45 PM Lesion found in Proximal LAD. Pre Stenosis: 40 twilson 01:45 PM Lesion found in Mid LAD. Pre Stenosis: 50 twilson 01:46 PM Lesion found in Proximal Circumflex. Pre Stenosis: 100 twilson 01:46 PM Lesion found in Ramus. Pre Stenosis: 30 twilson 01:50 PM Left Main Coronary Artery with 30% stenosis twilson 01:50 PM Proximal Left Anterior Descending Coronary Artery with 40% stenosis. If graft is supplying this territory, 0 % stenosis. twilson 01:50 PM Mid/Distal Left Anterior Descending Coronary Artery and diagonal branches with 50% stenosis. If graft is supplying this area, 0 % stenosis twilson 01:51 PM Circumflex, Obtuse Marginal, Left Posterior Descending, and Left Posterolateral Coronary Arteries with 100 % stenosis. If graft is supplying this area, 0 % stenosis twilson 01:52 PM Time: 13:37LOC: 5 = Fully awake and oriented or at pre-proc level twilson 01:52 PM Time: 13:37 Patient comfortable and pain free: Yes twilson 01:57 PM Right Coronary, Right Posterior Descending Arteries with Right Posterolateral and Acute Marginal branches with 100 % stenosis. twilson 01:57 PM Ramus with 30% stenosis. twilson 01:58 PM Report given to Bharati DELEON Pt taken to E Room #23. 13:58 twilson 01:58 PM Plavix, Effient or Brilinta given No twilson 01:58 PM Delay to floor No twilson 01:59 PM Patient out of room: 13:58 twilson 01:59 PM Family placed in consult room. twilson 01:59 PM Complications: None twilson 01:59 PM Fluoro Time: 2.3 twilson 01:59 PM Isovue 370 - 200ml contrast 122 ml given by Denisse Adhikari MD, [facility]. twilson 01:59 PM Radiation Dose 1299.03 mGy twilson Complications Complication None Hemodynamics Pressures Site Systolic/A Wave Diastolic/V Wave Mean AO 105 66 83 AO 116 66 89 LV 112 1 1 LV 100 10 3 LV 108 24 14 AO 109 54 77 AO 97 45 66 Post Procedure Information Blood Pressure: 135/58 mmHg Rhythm: NSR Post procedural instructions were given Closure Device Time Device Success/Fail 12/04/2016 1:59:00 PM MynxGrip Successful Site Checks Time Location Status Staff Sheath In? Note 01:36 PM Rt Groin No bleeding/hematoma Sites, Magalie RT (R) Pulses Time Site Pre-Procedure Post-Procedure Note 12/04/2016 12:34:00 PM Bilateral DP \\T\\ PT 1+ 12/04/2016 1:02:00 PM Bilateral radial 1+ 1:35:00 PM Bilateral DP \\T\\ PT 1+ Updated by RT Jr (R) on 12/04/2016 2:02:40 PM electronically signed on 12/04/2016 2:03:22 PM with status of Final
--- NOTE | 2016-12-04 14:15 | Pre-Sedation Evaluation ---
Pre-sedation evaluation - Pre-sedation checklist Date of procedure: 12/04/16 Procedure: [facility] Recent Vitals: Last Vital Signs Temp 97.9 F 12/04/16 14:06 Pulse 64 12/04/16 14:06 Resp 15 12/04/16 14:06 BP 145/74 12/04/16 14:06 Pulse Ox 93 12/04/16 14:06 H&P (including ROS) documented in medical record: Yes Previous reaction to sedatives/anesthetics: No Dietary Status: NPO after Midnight Airway Assessment: Patient can open mouth completely, TMJ function normal, Micrognathia (under-bite, receding chin) absent, Neck with adequate range of motion Dentition: No loose teeth or bridges Possible difficult airway: Yes If Yes;: Morbid obesity ASA Classification *see protocol: CLASS II-Mild systemic disease Plan of Care: Pt appropriate candidate for procedure/moderate/conscious sedation , Risks/benefits of procedure/sedation discussed w/ patient/family
--- NOTE | 2016-12-04 15:24 | Invasive Diagnostic Lab ---
Name: Fidel Holloway Date of Study: 12/04/2016 Date: 1950 Ht: 183.0 cm /72.0 in Medical Record#: [id number] Age: 66 Wt: 166.8 kg / 367.73 lb Account/Order#: [id number] Gender: Male BSA: 2.76 Order #: [id number] Fluoro Dose: 1299 mGy BMI: 49.81 Procedure Physician: Denisse Adhikari MD, FACC Referring MD: Referring MD: Procedures Performed: LEFT HEART CATH Indications: Non-Stemi, Abnormal Test - Stress Impressions: Triple vessel coronary artery disease. There is mild LV Dysfunction EF 40-45% Recommendations: Optimal medical therapy of patient's disease. Aggressive risk factor modification. History/Risk Factors: non-stemi colon cancer hypothyroidism Diabetes Hypertension Dyslipidemia Current/Recent Smoker Prior IA Previous PCI Procedure Access obtained in the right Femoral artery by percutaneous puncture Complications: None Contrast: Isovue 122ml Closure Device: MynxGrip Hemodynamics: Pressures Site Systolic/ A Wave Diastolic/ V Wave End Diastolic/ Mean HR AO 105 66 83 73 AO 116 66 89 72 LV 112 1 1 19 LV 100 10 3 74 LV 108 24 14 110 AO 109 54 77 80 AO 97 45 66 98 LV Ventriculography Ejection Method: LV Gram Ejection Fraction: 40-45% Wall Motion: FITZPATRICK Anterobasal Mild Hypokinesis Anterolateral Mild Hypokinesis Apical: Mild Hypokinesis Inferoapical Mild Hypokinesis Inferobasal Akinesis Coronary Dominance: right Lesion Findings/Interventions * Left Main Coronary Artery There is a 30% stenosis in the LMCA. * Left Anterior Descending There is a 40% stenosis in the Proximal LAD. There is a 50% stenosis in the Mid LAD. * Circumflex There is a 100% stenosis in the Ostial Circumflex- CHROME TANNER. OM1 fills via L to L collaterals. * Ramus There is a 30% stenosis in the Ramus. * Right Coronary Artery There is a 90% instent restenosis in the Proximal RCA. There is a 100% stenosis in the Mid RCA- CHROME TANNER. R PDA fills vial L to R collaterals. Updated by RT Jr (R) on 12/04/2016 2:03:05 PM Denisse Adhikari MD, FACC electronically signed on 12/04/2016 3:17:49 PM with status of Final
--- NOTE | 2016-12-04 15:35 | ECHO - Doppler Report ---
Echo with Imaging Enhancement Agent Name: Fidel Holloway Date of Study: 12/04/2016 Date: 1950 Ht: 72.0 in Medical Record#: [id number] Age: 66 Wt: 367.0 lb Gender: Male BSA: 2.76 Order #: [id number] Location: [facility] Room #: 2NE23 Reading Physician: Hermila De Santiago DO Inventory Control Clerk: Kanchan Nunez Ordering Physician: Abbe Boogie MD Primary Physician: Dago Agustin MD Indications: Check LV function Impressions: LVEF 55%. Normal LV systolic dysfunction with regional variations. Mildly dilated RV with normal function. Mild mitral regurgitation. No pulmonary hypertension. Left Ventricular Wall Motion: Rest Echo Findings The mid inferior, basal inferior, basal inferior septal, mid inferior lateral and basal inferior lateral montes were hypokinetic. All other wall segments showed normal motion. Findings: Study Quality * Technically sub-optimal due to body habitus. ECG Findings * Normal sinus rhythm. Aorta * Normally sized aortic root. Aortic Valve * No aortic regurgitation. * Aortic valve not well visualized. * No aortic stenosis. Tricuspid Valve * Tricuspid valve not well visualized. * Trace tricuspid regurgitation. Left Ventricle * Mild left ventricular diastolic dysfunction. * LVEF 55%. * Normal LV size and wall thickness. Mitral Valve * No mitral stenosis. * Mild mitral regurgitation. * Normal mitral valve structure. Left Atrium * Normal left atrial size. Right Atrium * Normal right atrial size. Right Ventricle * Mildly dilated RV with normal function. Pulmonic Valve * Pulmonic valve is not well visualized. * No pulmonic stenosis. * No pulmonic regurgitation. Pulmonary Artery * Pulmonary artery not well visualized. History Hypertension Diabetes Hypercholesteremia Years 20 Packs 1 History of CAD/PTCA Myocardial Infarction Congestive Heart Failure Contrast: Definity 1.3 ml in 8.7 ml of saline 2 ml. Measurements: BP: 129/ 64 2D Normal Values RVIDd: 3.30 cm <2.7 cm IVSd: 1.50 cm 0.6 - 1.0 cm LVIDd: 6.20 cm 3.7 - 5.6 cm LVPWd: 1.50 cm 0.6 - 1.1 cm LVIDs: 4.70 cm 1.5 - 3.6 cm AO: 3.40 cm < 4.0 cm LA: 4.90 cm 2.0 - 4.0cm %FS: 24.20 cm >25 % LA volume: 59 Mitral Valve Peak E:.52 m/sec Peak A:.94 m/sec E/A Ratio:0.6 Peak E' Lat Filippo:8.48 cm/s Peak E' Med Filippo:4.09 cm/s E/E' Lat Ratio:6.2 E/E' Med Ratio:12.8 Tricuspid Valve TV Regurg Peak Grad: 8.00mmHg TV Regurg Peak Filippo: 1.37m/sec Updated by Hermila De Santiago on 12/04/2016 3:27:52 PM electronically signed on 12/04/2016 3:31:20 PM with status of Final Wall Motion Darby: 1=Normal, 2=Hypokinesis, 3=Akinesis, 4=Dyskinesis, 5=Aneurysmal, 6=Hyperkinetic, X=Not Visualized (Blank)=Missing
--- NOTE | 2016-12-04 16:53 | Event Note ---
Date of Encounter: 12/04/16 Time of Encounter: 16:51 - Cardiology Event Note LHC showed severe three vessel CAD. There was SWITCHBOARD OPERATOR RECEPTIONIST of the proximal circumflex artery with left to left collaterals, 90% stenosis pRCA, SWITCHBOARD OPERATOR RECEPTIONIST of the mid RCA with left to right collaterals. There was a 40-50% stenosis in the proximal to mid LAD. TTE shows EF 55%. Mild mitral regurgitation. Medical management was recommended. Not a candidate for cardiac rehab in the setting of medical management. Continue aspirin, statin, and beta erlinda. Add Imdur. On Cardizem for rate control. Convert to long-acting Cardizem at discharge. Continue Xarelto for anticoagulation. Now NSR. Out-patient f/u will be coordinated by [facility]. Please call with changes.
[2016-12-04] MEDS: Insulin DETEMIR 100 UNIT/ML X5UNITS SQ SCH (21:54)
[2016-12-05 05:41] LABS: Basophils # 0.1 K/mcL (0.0-0.2); Basophils % 0.8 %; Eosinophils # 0.3 K/mcL (0.0-0.6); Eosinophils % 3.3 %; Hematocrit 41.3 % (37.5-50.1); Hemoglobin 13.9 g/dL (12.9-16.9); Immature Granulocytes % 0.4 % (0-4); Lymphocytes # 1.5 K/mcL (0.6-4.6); Lymphocytes % 19.3 %; Mean Corpuscular HGB Conc 33.7 g/dL (31.6-35.5); Mean Corpuscular Hemoglobin 31.3 pg (28.0-33.3); Mean Platelet Volume 11.7 fL (9.4-12.4); Monocytes # 0.7 K/mcL (0.0-1.3); Monocytes % 9.4 %; Neutrophils # 5.3 K/mcL (1.6-8.9); Platelet Count 267 K/mcL (140-400); Red Blood Count 4.44 M/mcL (4.19-5.50); Red Cell Distribution Width 12.1 % (11.5-14.5); Segmented Neutrophils % 66.8 %
[2016-12-05 05:51] LABS: BUN/Creatinine Ratio 14 (6-26); Blood Urea Nitrogen 13 mg/dL (8-26); Carbon Dioxide 23 mEq/L (19-29); Chloride 105 mEq/L (98-109); Glucose 150 mg/dL (70-99); Osmolality,Calculated 289 (280-300); Potassium 3.5 mEq/L (3.5-4.5); Sodium 138 mEq/L (136-145); eGFR For African Americans > 60 (> 60); eGFR For Non-African Americans > 60 (> 60)
[2016-12-05] MEDS ORDERED: *HR* Rivaroxaban 10 MG TABLET PO SCH (06:00)
[2016-12-05 08:09] VITALS: BP 117/75
[2016-12-05] MEDS: Insulin LISPRO 300 UNITS/3 ML VIAL SQ SCH (08:50)
[2016-12-05] MEDS: Aspirin 81 MG TAB.CHEW PO SCH (08:51)
[2016-12-05] MEDS ORDERED: Furosemide 40 MG/4 ML VIAL IVP SCH (09:00)
[2016-12-05] MEDS ORDERED: Isosorbide MONOnitrate (24 HR) 30 MG TAB.ER.24H PO SCH (09:00)
[2016-12-05] MEDS ORDERED: Magnesium Sulfate 2 GM in D5% in Water 100 ML IVPB ONE (09:16)
--- NOTE | 2016-12-05 09:28 | Discharge Summary ---
<Rupesh Soler - Last Filed: 12/05/16 09:29> Date of Encounter: 12/05/16 Time of Encounter: 09:17 - Discharge Diagnosis (1) Atrial fibrillation with RVR Priority: Secondary Status: Acute (2) New onset a-fib Priority: Primary Status: Acute (3) NSTEMI (non-ST elevated myocardial infarction) Priority: Secondary Status: Acute (4) Elevated troponin Priority: Secondary Status: Acute (5) Type 2 diabetes mellitus Priority: Secondary Status: Acute Qualifiers: Diabetes mellitus complication status: with neurologic complications Diabetes mellitus complication detail: with polyneuropathy Diabetes mellitus mcc insulin use: with terminal make up operator use Qualified Code(s): E11.42 - Type 2 diabetes mellitus with diabetic polyneuropathy; Z79.4 - 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 or 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) use 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 (6) DVT prophylaxis Priority: Secondary Status: Acute - Discharge Medications Prescriptions: Atorvastatin [Lipitor] 40 mg PO HS #30 tablet Atorvastatin [Lipitor] 40 mg PO HS #1 tablet Diltiazem CD (24hr) [Cardizem CD] 120 mg PO DAILY #30 cap.er.24h Diltiazem CD (24hr) [Cardizem CD] 120 mg PO DAILY #1 cap.er.24h Furosemide [Lasix] 20 mg PO DAILY #30 tablet Isosorbide MONOnitrate (24 HR) [Imdur] 30 mg PO DAILY #30 tab.er.24h Isosorbide MONOnitrate (24 HR) [Imdur] 30 mg PO DAILY #1 tab.er.24h Rivaroxaban [Xarelto] 20 mg PO 0600 #30 tablet Home Medications: Aspirin Enteric Coated [Aspirin EC] 81 mg PO DAILY 12/03/16 [History] Benzonatate [Tessalon] 100 mg PO TID PRN 12/03/16 [History] Carvedilol [Coreg] 6.25 mg PO BIDWM 12/03/16 [History] Cetirizine HCl [Zyrtec] 10 mg PO DAILY 12/03/16 [History] Cholecalciferol (D-3) [Vitamin D] 1,000 unit PO DAILY 12/03/16 [History] Fluticasone Propionate Nasal [Flonase] 100 mcg NS DAILY 12/03/16 [History] Insulin ASPART [Novolog Flexpen] 2 - 10 unit SQ TIDAC 12/03/16 [History] Insulin Glargine [Lantus] 43 unit SQ HS 12/03/16 [History] Levothyroxine [Synthroid] 175 mcg PO 0630 12/03/16 [History] Lisinopril [Zestril] 10 mg PO DAILY 12/03/16 [History] Metformin HCl [Metformin HCl ER] 1,000 mg PO BID 12/03/16 [History] Tamsulosin [Flomax] 0.4 mg PO BID 12/03/16 [History] Brimonidine 0.2% [Alphagan] 1 drop BOTH EYES TID 12/04/16 [History] Cyanocobalamin (B-12) [Vitamin B12] 1,000 mcg PO DAILY 12/04/16 [History] Ergocalciferol (VITAMIN D2) [Drisdol (50,000 Unit)] 50,000 unit PO QWEEK [History] Atorvastatin [Lipitor] 40 mg PO HS #1 tablet 12/05/16 [Rx] Atorvastatin [Lipitor] 40 mg PO HS #30 tablet 12/05/16 [Rx] Diltiazem CD (24hr) [Cardizem CD] 120 mg PO DAILY #1 cap.er.24h 12/05/16 [Rx] Diltiazem CD (24hr) [Cardizem CD] 120 mg PO DAILY #30 cap.er.24h 12/05/16 [Rx] Furosemide [Lasix] 20 mg PO DAILY #30 tablet 12/05/16 [Rx] Isosorbide MONOnitrate (24 HR) [Imdur] 30 mg PO DAILY #1 tab.er.24h 12/05/16 [Rx ] Isosorbide MONOnitrate (24 HR) [Imdur] 30 mg PO DAILY #30 tab.er.24h 12/05/16 [ Rx] Rivaroxaban [Xarelto] 20 mg PO 0600 #30 tablet 12/05/16 [Rx] Allergies/Adverse Reactions: Allergies No Known Allergies Allergy (Verified 12/03/16 14:51) Procedures/tests Complete & Pending: Procedures Performed prior 72 hours Category Date Time Status Left Heart Cath [CL Cardiac Catheterization] [CL] Infant Caregiver 12/04/16 12:18 Completed Routine EKG [ECG 12 lead ECG] [ECG] Routine Y 12/04/16 10:09 Ordered EV echocardiogram w enhance Routine Y 12/04/16 08:10 Completed Date of admission: 12/03/16 16:20 Primary care physician: PCP PAM Consults: 12/03/16 16:24 Consult to Cardiology [CONS] Routine Comment: Consulting Provider: Cardiology Yara Reason for Consult: new onset afib with RVR, NSTEMI Call Completed: No 12/04/16 09:51 Consult to Occupational Therapy [CONS] Routine Comment: Evaluate, develop and implement POC Reason for Consult: Multiple falls Consult to Physical Therapy [CONS] Routine Comment: Evaluate, develop and implement POC Reason for Consult: Falls Discharging clinician: Rupesh Soler Anticipated date of discharge: 12/05/16 - Patient Status Disposition: Home, Self-Care Condition: Fair Functional capacity at discharge: uses cane/walker Overall status at discharge: patient is progressing back to baseline - Discharge Instructions Instructions: Myocardial Infarction (GEN) [facility] Provider[facility] - Additional Instructions: [facility] Follow up with PCP. Symptoms of heart attack: Chest pain, nausea, vomiting, shortness of breath, passing out New medications: Atorvastatin 40 mg at night, cardizem 120 mg daily, Lasix 20 mg daily, Imdur 30 mg daily, Xarelto 20 mg daily. Medications that you will need to get from [facility] today: Atoravastatin, imdur, cardizem: there is a separate script for one pill. Xarelto: there is coupon card. This is a 30 day script. Medications that you will get from [facility] on wednesday: Atoravastatin, imdur, cardizem, lasix: these scripts will be for 30 days. - Diet and Activity Activity: increase activity as tolerated Diet: diabetic diet, low fat, low cholesterol, low salt diet, other (1500mL fluid restriction) Hospital course: Mr. Holloway is a 66 year old male presented from the chest pain and A. fib RVR. Patient had left chest, left shoulder, left arm pain with nausea and lightheadedness palpitations and shortness of breath. Chest pain and shortness of breath was worse with exertion and relieved by aspirin and nitroglycerin. EKG showed A. fib RVR with a rate of [address] elevations or depressions. Patient's troponins were 0.15 1.19, platelet 14. Patient was given a Cardizem bolus and started on Cardizem drip and his heart rate improved to 90. He was started on a heparin drip, aspirin and statin, Coreg, lisinopril. for NSTEMI and cardiology was consulted. Cardiology transition patient to by mouth Cardizem. TSH was within normal limits. Echocardiogram showed EF of 55% without valvular or wall motion abnormalities and there was no pulmonary hypertension. Patient underwent left heart Was found to have: "LHC showed severe three vessel CAD. There was GLAZIER ARTIST of the proximal circumflex artery with left to left collaterals, 90% stenosis pRCA, GLAZIER ARTIST of the mid RCA with left to right collaterals. There was a 40-50% stenosis in the proximal to mid LAD" as reported by cardiology. Patient tolerated procedure w/o any complications. THis morning patient denies CP. He is weaned off O2. He has good appetite. Can ambulate with his cane. He is ready for discharge. Plan: Follow up with PCP, [facility]. New Medicaitons: Imdur, Cardizem, Xarelto, atorvastatin dose increased to 40 mg daily. Continue aspirin and Coreg. - Time Spent with Patient Total time spent providing and/or coordinating discharge services: - Constitutional Vitals: Temp Pulse Resp BP Pulse Ox 97.5 F L 68 18 117/75 95 12/05/16 08:05 12/05/16 08:05 12/05/16 08:05 12/05/16 08:05 12/05/16 08:05 General appearance: Present: A&O X 3, pleasant, no acute distress - Eye Eye exam: Present: PERRL, conjuntiva pink, sclera anicteric Pupils: Present: PERRL - Neck Neck exam general surgery: Present: supple, trachea midline. Absent: lymphadenopathy - Respiratory Respiratory exam: Present: CTAB. Absent: accessory muscle use, rales, rhonchi, wheezes - Cardiovascular Cardiovascular exam: Present: irregular rhythm (a fib), +S1, +S2 - GI/Abdominal GI/Abdominal exam: Present: normal bowel sounds, soft, no peritoneal signs. Absent: distended, tenderness - Extremities Exam Extremities exam: Present: pedal edema (mild), warm, radial pulses palpable and symetrical. Absent: calf tenderness, cyanotic - Neurological Exam Neurological exam: Present: CN II-XII intact, oriented X3, no focal deficits. Absent: pronater drift, facial droop, speech deficit - Skin Skin exam: Present: dry, intact - VTE Documentation of Mechanical Device: Graduated compression elastic hosiery <Rambo Thakur - Last Filed: 12/05/16 18:18> Date of Encounter: 12/05/16 - Discharge Diagnosis (1) NSTEMI (non-ST elevated myocardial infarction) Priority: Primary Status: Acute (2) Atrial fibrillation Priority: Primary Status: Chronic Qualifiers: Atrial fibrillation type: persistent Qualified Code(s): I48.1 - Persistent atrial fibrillation (3) Type 2 diabetes mellitus Status: Chronic Qualifiers: Diabetes mellitus complication status: with neurologic complications Diabetes mellitus complication detail: with polyneuropathy Diabetes mellitus mcc insulin use: with mcc use Qualified Code(s): E11.42 - Type 2 diabetes mellitus with diabetic polyneuropathy; Z79.4 - detention (current) use of insulin (4) Obesity (BMI 30-39.9) Priority: Secondary Status: Chronic (5) RADHA (obstructive sleep apnea) Priority: Secondary Status: Chronic Procedures/tests Complete & Pending: Procedures Performed prior 72 hours Category Date Time Status Left Heart Cath [CL Cardiac Catheterization] [CL] Infant Caregiver 12/04/16 12:18 Completed Routine EKG [ECG 12 lead ECG] [ECG] Routine Y 12/04/16 10:09 Ordered EV echocardiogram w enhance Routine Y 12/04/16 08:10 Completed Date of admission: 12/03/16 16:20 Primary care physician: [facility]CP [facility] Consults: 12/03/16 16:24 Consult to Cardiology [CONS] Routine Comment: Consulting Provider: Cardiology Yara Reason for Consult: new onset afib with RVR, NSTEMI Call Completed: No 12/04/16 09:51 Consult to Occupational Therapy [CONS] Routine Comment: Evaluate, develop and implement POC Reason for Consult: Multiple falls Consult to Physical Therapy [CONS] Routine Comment: Evaluate, develop and implement POC Reason for Consult: Falls Hospital course: Mr. Holloway is a 66 year old male - Time Spent with Patient Total time spent providing and/or coordinating discharge services: 35min - Constitutional Vitals: Temp Pulse Resp BP Pulse Ox 97.5 F L 68 18 117/75 95 12/05/16 08:05 12/05/16 08:05 12/05/16 08:05 12/05/16 08:05 12/05/16 08:05 - Attending Attestation I examined this patient and my medical decision-making was reviewed with the Resident Physician on 12/05/16. I agree with the documented findings, disposition and treatment plan as described except to the extent set forth below. Mr. Holloway was admitted for chest pain and atrial fibrillation. He is feeling well today. No further chest pain. Meds have been adjusted. He is afebrile and vitals are stable. Exam Alert. Comfortable Heart irreg - not tachy Lungs clear Plan D/C home today Follow up with PCP.
== END 2016-12-05 15:25 | disposition home or self-care (01) | DRG 281 ==
LOC: EMEROO 14:22 → 2NENU 14:22
PROVIDERS: ADMIT Hospitalist; ATTEND Internal Medicine